=== PATIENT | female | born 1965 | race Caucasian/White ===

== ENCOUNTER 2017-06-02 18:08 | Observation (INO) | payer OTHER ==
[2017-06-02] VITALS (7 sets, daily range): BP systolic 96–142; BP diastolic 7–78; PULSE 85–94; TEMP 97.6–98.2
[~2017-06-02] VITALS: Ht 162.6 cm; Wt 89.7 kg
[2017-06-02] MEDS ORDERED: ATIVAN 1MG T1 MG/TAB PO (18:56)
[2017-06-02] MEDS ORDERED: TENORMIN 5050 MG/TAB PO (18:56)
[2017-06-02] MEDS ORDERED: REQUIP0.25 MG PO (18:57)
[2017-06-02] MEDS ORDERED: SYNTHROID0.088 MG/T PO (18:57)
[2017-06-02] MEDS ORDERED: ZOCOR 20MG20 MG PO (18:57)
[2017-06-02] MEDS ORDERED: AMITRIPTYLINE H10 M1 PO (18:58)
[2017-06-02] MEDS ORDERED: LEXAPRO 5MG5 MG PO (18:58)
[2017-06-02] MEDS ORDERED: PERCOCET 325 MG1 TA2 PO (19:24)
[2017-06-02] MEDS ORDERED: MOTRIN 600600 MG/TAB PO (19:25)
[2017-06-02] MEDS ORDERED: ZOFRAN ODT4 MG PO (19:25)
[2017-06-02] MEDS ORDERED: COLACE 100100 MG/CAP PO (19:25)
[2017-06-03 00:15] VITALS: BP 115/73; PULSE 88; TEMP 97.4
[2017-06-03 02:23] VITALS: BP 116/73; PULSE 102; TEMP 98.2
[2017-06-03 05:58] VITALS: BP 112/74; PULSE 99; TEMP 98.3
[2017-06-03 07:58] VITALS: BP 123/68; PULSE 110; TEMP 97.6
== END 2017-06-03 13:30 | disposition home or self-care (01) ==
LOC: SURG 18:08 → JCC 18:23
DX: K35.80 Unspecified acute appendicitis (principal); K38.8 Other specified diseases of appendix; I10 Essential (primary) hypertension; E78.5 Hyperlipidemia, unspecified; Z90.49 Acquired absence of other specified parts of digestive tract; Z90.710 Acquired absence of both cervix and uterus; Z88.1 Allergy status to other antibiotic agents; Z88.0 Allergy status to penicillin; Z88.2 Allergy status to sulfonamides; R12 Heartburn; E07.9 Disorder of thyroid, unspecified; R32 Unspecified urinary incontinence; Z96.0 Presence of urogenital implants
CPT/HCPCS: A9284; G0378; G0379; J0171; J0744; J1100; J1885; J2250; J2405; J2704; J2710; J2765; J3010; J7120